=== PATIENT | male | born 1980 | race Two or more races ===

== ENCOUNTER 2020-03-25 00:08 | Emergency (ER) | payer OTHER ==
[2020-03-25 00:25] VITALS: BP 109/68; PULSE 94; RESP 18; TEMP 98.4
[2020-03-25] MEDS ORDERED: KETOROLAC 15 MG/ML 1 ML VIAL IVP STA (01:06)
[2020-03-25 01:20] LABS: Basophils % (A) 1 %; Eosinophils # (A) 0.2 k/uL (0-0.7); Eosinophils % (A) 3 %; HCT 41.2 % (39.0-53.0); HGB 13.2 gm/dL (13.0-17.5); Lymphocytes # (A) 2.3 k/uL (1.0-4.8); Lymphocytes % (A) 32 %; MCH 29.9 pg (25.0-35.0); MCV 93.5 fL (80.0-100.0); Mean Platelet Volume 7.7; Monocytes # (A) 0.4 k/uL (0-1.0); Monocytes % (A) 6 %; Neutrophils # (A) 4.1 k/uL (1.3-7.7); Neutrophils % (A) 57 %; Platelet Count 200 k/uL (150-450); RDW 13.3 % (11.5-15.5); WBC 7.1 k/uL (3.8-10.6)
[2020-03-25 01:32] LABS: ALT 48 U/L (4-49); AST 31 U/L (17-59); African American GFR (CKD) >90 (>60 ml/min/1.73 sqM); Alkaline Phosphatase 86 U/L (38-126); Amylase 69 U/L (30-110); Anion Gap 6 mmol/L; Blood Urea Nitrogen 23 mg/dL (9-20); Calcium 9.2 mg/dL (8.4-10.2); Carbon Dioxide 27 mmol/L (22-30); Chloride 106 mmol/L (98-107); Glucose 97 mg/dL (74-99); Lipase 166 U/L (23-300); Non-African American GFR(CKD) 80 (>60 ml/min/1.73 sqM); Potassium 4.6 mmol/L (3.5-5.1); Sodium 139 mmol/L (137-145); Total Bilirubin 0.3 mg/dL (0.2-1.3); Total Protein 6.9 g/dL (6.3-8.2)
[2020-03-25 01:35] LABS: Amorphous Sediment,Urine Rare /hpf; Appearance,Urine Turbid (Clear); Bilirubin,Urine Negative (Negative); Blood,Urine Moderate (Negative); Color,Urine Yellow; Glucose,Urine (UA) Negative (Negative); Ketones,Urine Negative (Negative); Leukocyte Esterase,Urine Negative (Negative); Mucus,Urine Rare /hpf; Nitrite,Urine Negative (Negative); PH, Urine 7.5 (5.0-8.0); Protein,Urine Trace (Negative); RBC,Urine >182 /hpf (0-5); Urobilinogen,Urine <2.0 mg/dL (<2.0); WBC,Urine 12 /hpf (0-5)
[2020-03-25] MEDS ORDERED: methylPREDNISolone SOD SUCCI 125 MG/2 ML VIAL IV STA (01:50)
[2020-03-25] MEDS ORDERED: diphenhydrAMINE 50 MG/ML 1 ML VIAL IVP STA (01:50)
[2020-03-25] MEDS ORDERED: FAMOTIDINE 20 MG/2 ML VIAL IV STA (01:50)
[2020-03-25] MEDS ORDERED: ONDANSETRON 4 MG/2 ML VIAL IVP STA (01:50)
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
--- NOTE | 2020-03-25 03:06 | XR ---
EXAM: XR Bilateral Ribs, 3 Views CLINICAL HISTORY: ITS.REASON XR Reason: trauma TECHNIQUE: Frontal and oblique views of the bilateral ribs. COMPARISON: No relevant prior studies available. IMPRESSION: In the right posterior 11th rib, there is a linear lucent line without deformity of the bone which may represent nondisplaced fracture versus prominent nutrient vessel. Remaining ribs are intact.
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
== END 2020-03-25 04:12 | disposition home or self-care (01) ==
LOC: EC 00:08
DX: S22.39XA Fracture of one rib, unspecified side, initial encounter for closed fracture (principal); R10.9 Unspecified abdominal pain; R31.9 Hematuria, unspecified; F17.200 Nicotine dependence, unspecified, uncomplicated; Z87.442 Personal history of urinary calculi; X58.XXXA Exposure to other specified factors, initial encounter
CPT/HCPCS: 36415; 80053; 82150; 83605; 83690; 85025; 81001; 71111; 74177; 99284; 96374; 96375 ×4; J1200; J2930; J2405; J1885; Q9967